=== PATIENT | female | born 1975 | race Caucasian/White ===

== ENCOUNTER 2018-03-27 21:03 | Emergency (ER) | payer OTHER | END 2018-03-27 22:40 | disposition other institution (70) | LOC: ED 21:03 | DX: Z02.89 Encounter for other administrative examinations (principal) ==

== ENCOUNTER 2018-03-27 21:03 | Emergency (ER) | payer SELFPAY ==
[~2018-03-27] VITALS: Ht 167.6 cm; Wt 77.1 kg
[2018-03-27 21:22] VITALS: Ht 167.6 cm; Wt 77.1 kg
[2018-03-27 22:40] VITALS: BP 115/72
== END 2018-03-27 22:40 | disposition other institution (70) ==
LOC: ED 21:03
DX: S16.1XXA Strain of muscle, fascia and tendon at neck level, initial encounter (principal); F10.129 Alcohol abuse with intoxication, unspecified; V47.5XXA Car driver injured in collision with fixed or stationary object in traffic accident, initial encounter; Y93.I9 Activity, other involving external motion; Y92.488 Other paved roadways as the place of occurrence of the external cause; Y99.8 Other external cause status
CPT/HCPCS: Q0092